=== PATIENT | female | born 1960 | race Hispanic/Latino ===

== ENCOUNTER 2018-08-17 06:08 | Emergency (ER) | payer OTHER ==
--- NOTE | 2018-08-17 10:49 | ER ---
Nurse's Notes [facility] Name: Candace Rush Age: 58 yrs Sex: Female : 1960 Arrival Date: 08/17/2018 Time: 06:17 Bed 3 Private MD: Diagnosis: Cardiac arrest Presentation: 08/17 06:05 Acuity: ARMANDO 1 jd3 06:07 Presenting complaint: EMS states: that they were toned for unresponsive pt. They were fc told by pts that she was fine last night when she went to bed at 2000 but this morning at 0500 when he attempted to wake her up she would not get up. Upon their arrival pt has pulse at 0525 then at 0545 they lost pulse and started CPR. Transition of care: patient was not received from another setting of care. Onset of symptoms was August 17, 2018. Risk Assessment: Do you want to hurt yourself or someone else? Unable to obtain. Initial Sepsis Screen: Does the patient meet any 2 criteria?. Care prior to arrival: Assisted ventilation, CPR manually performed by EMS and is still in progress Glucose check: 141 Oxygen administered. via AMBU bag Shocked with 200 joules x 1. 06:07 Method Of Arrival: EMS: [facility] fc 06:07 Acuity: ARMANDO 1 fc 06:07 Compressions began prior to arrival. fc Historical: - Allergies: 07:42 No Known Allergies; fc - PMHx: 07:42 Diabetes - NIDDM; High Cholesterol; Anxiety; Depression; Rheumatoid Arthritis; fc - Unable to obtain history due to: patient distress. Screenin:40 Abuse screen: no signs of abuse noted. Fall Risk Total Bishop Fall Scale indicates High jd3 Risk Score (45 or more points). Side Rails Up X 2 1:1 Attendant Assigned. Assessment: 06:07 General: Appears distressed, Behavior is unresponsive. CPR in progress. Pain: Unable to jd3 use pain scale. Patient is unresponsive. Neuro: Level of Consciousness is unresponsive, Oriented to none. Cardiovascular: Heart tones absent Rhythm is asystole. Respiratory: Airway pt with assisted ventilation with Ambu bag. GI: Abdomen is round non-distended. : No signs and/or symptoms were reported regarding the genitourinary system. EENT: No signs and/or symptoms were reported regarding the EENT system. Derm: Skin is intact, Skin is dry, Skin is pale, Skin temperature is cool. Musculoskeletal: pt is unresponsive. 06:07 CPR assessment: unresponsive, no respiratory effort, Ambu ventilation, pale, pulses jd3 present w/ compressions. 06:07 Cardiac rhythm is asystole. jd3 06:15 Reassessment: CPR continuing. pt unresponsive. pt with no pulses or respirations. jd3 06:25 Reassessment: Dr. Calderon called time of . jd3 10:46 Reassessment: Belonging taken by Development Eng Micah Star who states that he will be ss releasing items to family later today. SEE patient belonging paper on chart for full detail of inventory. Vitals: 06:07 Cardiac Rhythm Assessment Asytole. jd3 Mitch Coma Score: 06:32 Eye Response: none(1). Verbal Response: none(1). Motor Response: none(1). Total: 3. ED Course: 06:07 Patient placed in an exam room, on a stretcher, on oxygen. 06:07 Inserted saline lock: 20 gauge in right forearm, using aseptic technique. ,using aseptic technique. per Patel CAMPOS. 06:09 Assisted provider with intubation using 7.5 mm ETT via oral route. ET tube secured at fc 21cm at the teeth. Set up intubation tray. Intubated by Charles Calderon MD Placement verified by CO2 detector w/ + color change, auscultating bilateral breath sounds. 06:17 Patient arrived in ED. 06:26 Charles Calderon MD is Attending Physician. 06:26 Charles Calderon MD is Pronouncing Provider. 06:28 Police [facility] Dispatch called / Areli will call out an officer. eb 06:28 Patient has correct armband on for positive identification. Placed in gown. Bed in low jd3 position. Side rails up X2. 06:30 Tl Friedman RN is Primary Nurse. jd3 06:43 Triage completed. jd3 Administered Medications: 06:08 Drug: EPINEPHrine 0.1mg/mL 1:10,000 1 mg Route: IVP; Site: right forearm; 06:25 Follow up: Response: No change in condition jd3 06:11 Drug: EPINEPHrine 0.1mg/mL 1:10,000 1 mg {Note: per Patel RN.} Route: IVP; Site: right forearm; 06:25 Follow up: Response: No change in condition jd3 06:13 Drug: Sodium Bicarbonate 1 amp {Note: by Patel RN.} Route: IVP; Site: right forearm; 06:25 Follow up: Response: No change in condition jd3 06:14 Drug: EPINEPHrine 0.1mg/mL 1:10,000 1 mg {Note: per Patel RN.} Route: IVP; Site: right forearm; 06:25 Follow up: Response: No change in condition jd3 06:14 Drug: NS 0.9% 1000 ml {Note: Patel RN.} Route: IV; Rate: 1 bolus; Site: right forearm; 06:25 Follow up: Response: No change in condition; IV Status: Completed infusion; IV Intake: jd3 1000ml 06:16 Drug: Sodium Bicarbonate 1 amp {Note: per Patel RN.} Route: IVP; Site: right forearm; 06:25 Follow up: Response: No change in condition jd3 06:17 Drug: EPINEPHrine 0.1mg/mL 1:10,000 1 mg {Note: per Patel RN.} Route: IVP; Site: right forearm; 06:25 Follow up: Response: No change in condition jd3 06:20 Drug: EPINEPHrine 0.1mg/mL 1:10,000 1 mg {Note: per Patel RN.} Route: IVP; Site: right forearm; 06:25 Follow up: Response: No change in condition jd3 06:21 Drug: Sodium Bicarbonate 1 amp {Note: per Patel RN.} Route: IVP; Site: right forearm; 06:25 Follow up: Response: No change in condition jd3 06:23 Drug: EPINEPHrine 0.1mg/mL 1:10,000 1 mg {Note: per Patel RN.} Route: IVP; Site: right forearm; 06:25 Follow up: Response: No change in condition jd3 Intake: 06:25 IV: 1000ml; Total: 1000ml. jd3 Outcome: 06:25 Patient : Time of 06:25 Pronounced by Charles Calderon MD jd3 06:25 Condition: jd3 10:48 Patient left the ED. ss Signatures: Padmaja Varela RN RN Neyda Brown RN RN Charles Pickett MD MD gs Davies, Jonathon, RN RN jDebbie Yanes Corrections: (The following items were deleted from the chart) 06:47 06:07 Care prior to arrival: Assisted ventilation, CPR manually performed by EMS and is fc still in progress Oxygen administered. via AMBU bag 06:48 06:07 Care prior to arrival: Assisted ventilation, CPR manually performed by EMS and is fc still in progress Glucose check: 141 Oxygen administered. via AMBU bag 06:53 06:15 Reassessment: CPR continued. pt unresponsive. haleigh [email or web address]
--- NOTE | 2018-08-17 10:49 | EDPHYS ---
Physician Documentation [facility] Name: Candace Rush Age: 58 yrs Sex: Female : 1960 Arrival Date: 08/17/2018 Time: 06:17 Bed 3 Private MD: ED Physician Charles Calderon HPI: 08/17 06:32 This 70 yrs old Female presents to ER via Unassigned with complaints of collapsed,cpr gs in progress. 06:32 Preceding the arrest, the patient collapsed. The arrest occurred at home. Pre-hospital gs course: The arrest was not witnessed by others. Bystanders at the scene did not perform CPR. EMS care prior to arrival: initiation of ACLS, oxygen, by BVM to assist ventilations. It is unknown whether or not the patient has had similar symptoms in the past. Historical: - Allergies: 07:42 No Known Allergies; fc - PMHx: 07:42 Diabetes - NIDDM; High Cholesterol; Anxiety; Depression; Rheumatoid Arthritis; fc - Unable to obtain history due to: patient distress. ROS: 06:32 Unable to obtain ROS due to patient distress. gs Exam: 06:32 Constitutional: The patient appears in obvious distress, severely distressed, gs unconscious. 06:32 Head/face: Exam is negative for ecchymosis. 06:32 Eyes: Pupils: are fixed and dilated. 06:32 Cardiovascular: Rate: actual rate is 0 bpm, Pulses: not palpable. 06:32 Respiratory: no self effort being bvm. 06:32 Abdomen/GI: Palpation: soft. Mitch Coma Score: 06:32 Eye Response: none(1). Verbal Response: none(1). Motor Response: none(1). Total: 3. gs Procedures: 06:32 Intubation: Ventilated with 100% NRB prior to procedure. Intubated orally using # 4 gs Trisha blade with 7.5 mm ETT. was successful on first attempt. Ventilated with Ambu bag. Tube secured with ETT worley Placement verified by CO2 detector with (+) color change, auscultating bilateral breath sounds. Ultrasound: Type: Fast exam, performed by the emergency department physician, no cardiac activity performed 3 x during code and prior to calling end of code and time of . MDM: 06:26 Patient medically screened. gs 06:32 Data reviewed: EMS record. gs Administered Medications: 06:08 Drug: EPINEPHrine 0.1mg/mL 1:10,000 1 mg Route: IVP; Site: right forearm; 06:25 Follow up: Response: No change in condition jd3 06:11 Drug: EPINEPHrine 0.1mg/mL 1:10,000 1 mg {Note: per Patel RN.} Route: IVP; Site: right forearm; 06:25 Follow up: Response: No change in condition jd3 06:13 Drug: Sodium Bicarbonate 1 amp {Note: by Patel RN.} Route: IVP; Site: right forearm; 06:25 Follow up: Response: No change in condition jd3 06:14 Drug: EPINEPHrine 0.1mg/mL 1:10,000 1 mg {Note: per Patel RN.} Route: IVP; Site: right forearm; 06:25 Follow up: Response: No change in condition jd3 06:14 Drug: NS 0.9% 1000 ml {Note: Patel RN.} Route: IV; Rate: 1 bolus; Site: right forearm; 06:25 Follow up: Response: No change in condition; IV Status: Completed infusion; IV Intake: jd3 1000ml 06:16 Drug: Sodium Bicarbonate 1 amp {Note: per Patel RN.} Route: IVP; Site: right forearm; 06:25 Follow up: Response: No change in condition jd3 06:17 Drug: EPINEPHrine 0.1mg/mL 1:10,000 1 mg {Note: per Patel RN.} Route: IVP; Site: right forearm; 06:25 Follow up: Response: No change in condition jd3 06:20 Drug: EPINEPHrine 0.1mg/mL 1:10,000 1 mg {Note: per Patel RN.} Route: IVP; Site: right forearm; 06:25 Follow up: Response: No change in condition jd3 06:21 Drug: Sodium Bicarbonate 1 amp {Note: per Patel RN.} Route: IVP; Site: right forearm; 06:25 Follow up: Response: No change in condition jd3 06:23 Drug: EPINEPHrine 0.1mg/mL 1:10,000 1 mg {Note: per Patel RN.} Route: IVP; Site: right forearm; 06:25 Follow up: Response: No change in condition jd3 Disposition: Patient pronounced on 08/17/18 06:26 by Charles Calderon. Impression: Cardiac arrest. - Released to Social Media Analyst. Signatures: Padmaja Varela RN RN Neyda Brown RN RN Charles Calderon MD MD gs Davies, Jonathon RN jd3 Corrections: (The following items were deleted from the chart) 10:48 06:26 08/17/2018 06:26 Patient pronounced on 08/17/2018 at 06:26 by Charles Calderon. Impression: Cardiac arrest. Released to Social Media Analyst. gs
== END 2018-08-17 10:48 ==
LOC: ER 06:08 → EDBD 06:08 → ER 10:48
PROC: 0BH17EZ Insertion of Endotracheal Airway into Trachea, Via Natural or Artificial Opening (ICD-10-PCS; principal; 2018-08-17)
DX: I46.9 Cardiac arrest, cause unspecified (principal); E11.9 Type 2 diabetes mellitus without complications; E78.00 Pure hypercholesterolemia, unspecified; F41.9 Anxiety disorder, unspecified; F32.9 Major depressive disorder, single episode, unspecified
CPT/HCPCS: 31500; 92950; 96374; 96375; 99285